=== PATIENT | female | born 1985 ===

== ENCOUNTER 2017-11-21 10:07 | Emergency (ER) | payer MEDICAID ==
[~2017-11-21] VITALS: Ht 162.6 cm; Wt 130.0 kg
[2017-11-21 10:08] VITALS: BP 165/90; PULSE 89; RESP 18; TEMP 98.6; O2SAT 100
--- NOTE | 2017-11-21 10:52 | PD ---
HPI Chief Complaint: Medical Clearance Time Seen by Provider: 10:34 Travel History International Travel<30 days: No Contact w/Intl Traveler<30days: No Traveled to known affect area: No History of Present Illness HPI 32-year-old female presents emergency department with reports of a sudden onset headache with neck spasm approximately 830 this morning which lasted less than a minute, patient was concerned that she might be having some sort of TIA, or something to that effect. Patient states she feels pretty much back to normal now. She states he does not typically have headaches or neck spasm. She denies specific history of stress or anxiety in recent weeks. Patient is recently moved to the area and does not have a local primary care physician yet. She denies visual changes or specific neurological deficits. Currently her pain is approximately a 2 out of 10. She has no known drug allergies. PFSH Past Medical History ?: Not LMP: LAST MONTH Social History Alcohol Use: Yes Tobacco Use: No Substance Use: No Review of Systems Except as stated in HPI: all other systems reviewed are Neg General / Constitutional: No: Fever, Chills Eyes: No: Diploplia, Blurred Vision, Photophobia, Drainage, Visual changes HENT: Positive: Headaches, No: Vertigo, Lightheadedness, Sore Throat, Rhinitis , Rhinorrhea, Congestion, Nosebleed (See history of present), Neck Stiffness, Neck Pain, Dental Difficulties, Earache Cardiovascular: No: Chest Pain or Discomfort Respiratory: No: Shortness of Breath Gastrointestinal: No: Nausea, Vomiting, Abdominal Pain Genitourinary: No: Dysuria Musculoskeletal: No: Pain Skin: No Rash Neurologic: No: Weakness, Dizziness, Syncope, Focal Abnormalities, Coordination Problem, Tremor, Ataxia, Change in Mentation, Slurred Speech, Paresthesia, Incontinence, Seizures, Sensory Disturbance Psychiatric: No: Depression Endocrine: No: Polydipsia Hematologic/Lymphatic: No: Easy Bruising Physical Exam Narrative GENERAL: Patient appears somewhat anxious but otherwise in no acute distress SKIN: Warm and dry. Normal color. Normal turgor. No rash. HEAD: Atraumatic. Normocephalic. No reproducible pain. EYES: Pupils equal and round. No scleral icterus. No injection or drainage. Ocular motion is full bilaterally. Visual vasquez are full by confrontation ENT: No nasal bleeding or discharge. Mucous membranes pink and moist. Uvula is midline. Tongue is midline. Denies any pharynx is clear. Airways patent NECK: Trachea midline. Supple and nontender. Question of bruit in the right carotid noted. CARDIOVASCULAR: Regular rate and rhythm. No murmurs gallops or rubs appreciated. RESPIRATORY: No accessory muscle use. Clear to auscultation. Breath sounds equal bilaterally. GASTROINTESTINAL: Abdomen soft, non-tender, nondistended. Hepatic and splenic margins not palpable. MUSCULOSKELETAL: Extremities without clubbing, cyanosis, or edema. No obvious deformities. NEUROLOGICAL: Awake and alert. No obvious cranial nerve deficits. Motor grossly within normal limits. Five out of 5 muscle strength in the arms and legs. Normal speech. PSYCHIATRIC: Appropriate mood and affect; insight and judgment normal. Data Data Last Documented VS Vital Signs Date Time Temp Pulse Resp B/P (MAP) Pulse Ox O2 Delivery O2 Flow Rate FiO2 11/21/17 10:08 98.6 89 18 165/90 (115) 100 MDM Medical Decision Making Medical Screen Exam Complete: Yes Emergency Medical Condition: No Differential Diagnosis Episodic headache. Muscle spasm. Torticollis. Narrative Course A medical screening exam was performed: At the time of evaluation the presenting medical condition was determined not to be of an emergent nature. The patient was given the option of receiving additional care, but declined. Patient was given options for additional community resources from which to obtain care. The Patient Has Been advised to seek medical attention for their presenting complaint. The patient has been advised to return to the ER at any time if an emergent condition develops. Condition: Stable Elio Bell Nov 21, 2017 10:51
== END 2017-11-21 10:59 | disposition left against medical advice (07) ==
LOC: NEPD 10:07
DX: R51 Headache (principal)
CPT/HCPCS: 99281

== ENCOUNTER 2018-01-29 06:27 | Emergency (ER) | payer MEDICAID ==
[~2018-01-29] VITALS: Ht 162.6 cm; Wt 128.0 kg
[2018-01-29 06:39] VITALS: BP 176/81; PULSE 93; RESP 18; TEMP 98.9; O2SAT 100
--- NOTE | 2018-01-29 07:17 | PD ---
HPI Chief Complaint: Cold / Flu Symptoms Time Seen by Provider: 07:04 Travel History International Travel<30 days: No Contact w/Intl Traveler<30days: No Traveled to known affect area: No History of Present Illness HPI The patient is a 32-year-old -[place] female who presents to the emergency department for 2 days of chills, fever, body aches, sore throat, and headache. The patient's symptoms started on Tuesday, she notes intermittent chills, subjective fevers, and headache. She also notes a sore throat with loss of voice. The patient also notes dry nonproductive cough but denies any chest pain or shortness of breath. She denies any nausea, vomiting, diarrhea, abdominal pain, or dysuria. 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 She did not receive an influenza vaccination this year. She has been taking DayQuil and NyQuil at home with minimal relief of her symptoms. PENDING SALE TO [facility] Past Medical History Medical History: Denies Significant Hx Diminished Hearing: No Tetanus Vaccination: Unknown Influenza Vaccination: No ?: Not LMP: 01/24/2018 Past Surgical History Section: Yes Social History Alcohol Use: Yes Tobacco Use: No Substance Use: No Allergies-Medications (Allergen,Severity, Reaction): Coded Allergies: No Known Allergies (Unverified , 01/29/18) Review of Systems Except as stated in HPI: all other systems reviewed are Neg General / Constitutional: Positive: Fever, Chills HENT: Positive: Headaches, Sore Throat, Congestion Cardiovascular: No: Chest Pain or Discomfort Respiratory: Positive: Cough, No: Shortness of Breath Gastrointestinal: No: Nausea, Vomiting, Diarrhea, Abdominal Pain Genitourinary: No: Dysuria Musculoskeletal: Positive: Myalgias Physical Exam Narrative GENERAL: Awake, alert, pleasant 32-year-old female who appears her stated age and is in no acute respiratory distress. SKIN: Focused skin assessment warm/dry. HEAD: Atraumatic. Normocephalic. EYES: Pupils equal and round. No scleral icterus. No injection or drainage. ENT: No nasal bleeding or discharge. Erythema without exudate. NECK: Trachea midline. No JVD. No meningeal signs. CARDIOVASCULAR: Regular rate and rhythm. No murmur appreciated. RESPIRATORY: No accessory muscle use. Clear to auscultation. Breath sounds equal bilaterally. MUSCULOSKELETAL: No obvious deformities. No clubbing. No cyanosis. No edema. NEUROLOGICAL: Awake and alert. No obvious cranial nerve deficits. Motor grossly within normal limits. Normal speech. PSYCHIATRIC: Appropriate mood and affect; insight and judgment normal. Data Data Last Documented VS Vital Signs Date Time Temp Pulse Resp B/P (MAP) Pulse Ox O2 Delivery O2 Flow Rate FiO2 01/29/18 06:39 98.9 93 18 176/81 (112) 100 Orders Orders Influenzae A/B Antigen (01/29/18 07:10) Group A Rapid Strep Screen (01/29/18 07:10) MDM Medical Decision Making Medical Screen Exam Complete: Yes Emergency Medical Condition: Yes Medical Record Reviewed: Yes Interpretation(s) Date/Time Source Procedure Growth Status 01/29/18 07:12 Nasal Aspirate Influenza Types A,B Antigen (ROM) - Final NEGATIVE FOR FLU A AND B ANTIGEN.... Complete 01/29/18 07:12 Throat Group A Streptococcus Screen (ROM) - Final Pos For Grp A Strep Antigen Complete Differential Diagnosis Differential diagnosis includes influenza, viral syndrome, pharyngitis, strep pharyngitis, laryngitis, bronchitis, pneumonia, URI, sinusitis. Narrative Course Strep screen and influenza screen were sent to lab. Influenza screen is negative. Patient is positive for group A strep, therefore, was offered a choice between Pen-Vee K and Bicillin L-A injection. The patient chose to have a Bicillin LA injection, therefore, was administered 1.2 million units IM. Patient is advised alternate Tylenol Motrin for pain and fever. She will be provided a copy of her results at discharge. She is advised to follow-up with a primary physician. Diagnosis Primary Impression: Strep pharyngitis Patient Instructions: General Instructions Additional Instructions: Please provide the patient a copy of her results at discharge. Alternate Tylenol Motrin for pain and fever. Follow-up with your primary physician. Return if symptoms worsen or progress. Med/Other Pt SpecificInfo: No Change to Meds Disposition: 01 DISCHARGE HOME Condition: Stable Obdulio Larsen MD Jan 29, 2018 07:17
[2018-01-29] MEDS ORDERED: PENICILLIN G BENZATHINE 1,200,000 UNITS/2 ML SYRINGE IM ONE (08:00)
[2018-01-29 09:02] VITALS: BP 160/75
== END 2018-01-29 09:02 | disposition home or self-care (01) ==
LOC: NEPC 06:27
DX: J02.0 Streptococcal pharyngitis (principal)
CPT/HCPCS: 87804; 87880; 96372; 99283; J0561